=== PATIENT | female | born 1995 | race Caucasian/White ===

== ENCOUNTER 2017-02-22 13:24 | Emergency (ER) | payer SELFPAY ==
[~2017-02-22] VITALS: Ht 180.3 cm; Wt 60.9 kg
[2017-02-22 13:54] LABS: BASOPHILS # (AUTO) 0.02 x10^3/uL (0-0.1); BASOPHILS % (AUTO) 0 % (0-1); EOSINOPHILS # (AUTO) 0.08 x10^3/uL (0-0.4); EOSINOPHILS % (AUTO) 2 % (1-7); LYMPHOCYTES % (AUTO) 35 % (22-44); MD NO; MEAN CORPUSCULAR HEMOGLOBIN 30.5 pg (27.0-34.8); MEAN CORPUSCULAR HGB CONC 34.2 g/dL (32.4-35.8); MEAN CORPUSCULAR VOLUME 89.3 fL (80-100); MEAN PLATELET VOLUME 8.4 fL (7.4-10.4); MONOCYTES # (AUTO) 0.22 x10^3/uL (0.2-0.8); MONOCYTES % (AUTO) 5 % (2-9); NEUTROPHILS # (AUTO) 2.65 x10^3/uL (1.8-6.8); NEUTROPHILS % (AUTO) 58 % (42-75); PLATELET COUNT 238 x10^3/uL (130-400); RED BLOOD COUNT 4.37 x10^6/uL (3.82-5.3); RED CELL DISTRIBUTION WIDTH 13.4 % (9.6-15.2)
[2017-02-22 14:06] LABS: ALANINE AMINOTRANSFERASE 22 U/L (12-78); ALBUMIN 4.3 g/dL (3.4-5.0); ANION GAP 4 mmol/L (5-15); CALCIUM 8.5 mg/dL (8.5-10.1); CHLORIDE 107 mmol/L (98-107)
[2017-02-22 14:11] LABS: ALKALINE PHOSPHATASE 49 U/L (45-117); BILIRUBIN,TOTAL 0.5 mg/dL (0.2-1.0); TOTAL PROTEIN 7.5 g/dL (6.4-8.2)
[2017-02-22] MEDS ORDERED: SUMATRIPTAN 6MG/0.5ML SQ ONE ×2 (14:30→14:49)
[2017-02-22] MEDS ORDERED: METOCLOPRAMIDE 5 MG/ML, 2ML IVPush ONE (14:30)
[2017-02-22] MEDS ORDERED: METOCLOPRAMIDE 5 MG/ML, 2ML ONE (14:49)
[2017-02-22] MEDS ORDERED: SODIUM CHLORIDE 0.9% 1,000ML IVBOLUS ONE (15:00)
[2017-02-22 15:18] LABS: MICROSCOPIC AUTO
[2017-02-22 15:19] LABS: CULTURE INDICATED? YES
[2017-02-22 17:26] VITALS: BP 115/75
== END 2017-02-22 17:28 | disposition home or self-care (01) ==
LOC: ED 16:18
DX: G43.009 Migraine without aura, not intractable, without status migrainosus (principal); R11.2 Nausea with vomiting, unspecified; J45.909 Unspecified asthma, uncomplicated; R82.99 Other abnormal findings in urine; Z90.49 Acquired absence of other specified parts of digestive tract
CPT/HCPCS: 36415; 70450; 80053; 81001; 84703; 85025; 87077; 87086; 87186; 96372; 96374; 99285; J2765; J3030; J7030

== ENCOUNTER 2017-08-17 13:34 | Emergency (ER) | payer SELFPAY ==
[~2017-08-17] VITALS: Ht 180.3 cm; Wt 59.7 kg
[2017-08-17 13:35] VITALS: BP 119/68
[2017-08-17 15:17] LABS: HCG UR SG 1.024 (1.003-1.030); MICROSCOPIC NOT IND
[2017-08-17 15:19] LABS: CULTURE INDICATED? NO
[2017-08-17 15:42] LABS: BASOPHILS # (AUTO) 0.02 x10^3/uL (0-0.1); BASOPHILS % (AUTO) 0 % (0-1); EOSINOPHILS # (AUTO) 0.04 x10^3/uL (0-0.4); EOSINOPHILS % (AUTO) 1 % (1-7); LYMPHOCYTES # (AUTO) 1.15 x10^3/uL (1-3.4); LYMPHOCYTES % (AUTO) 17 % (22-44); MD NO; MEAN CORPUSCULAR HEMOGLOBIN 29.9 pg (27.0-34.8); MEAN CORPUSCULAR HGB CONC 33.9 g/dL (32.4-35.8); MEAN CORPUSCULAR VOLUME 88.2 fL (80-100); MEAN PLATELET VOLUME 7.9 fL (7.4-10.4); MONOCYTES # (AUTO) 0.24 x10^3/uL (0.2-0.8); MONOCYTES % (AUTO) 4 % (2-9); NEUTROPHILS # (AUTO) 5.31 x10^3/uL (1.8-6.8); NEUTROPHILS % (AUTO) 78 % (42-75); PLATELET COUNT 246 x10^3/uL (130-400); RED BLOOD COUNT 4.48 x10^6/uL (3.82-5.3); RED CELL DISTRIBUTION WIDTH 13.9 % (9.6-15.2)
[2017-08-17 15:51] LABS: ALANINE AMINOTRANSFERASE 22 U/L (12-78); ALBUMIN 4.1 g/dL (3.4-5.0); ANION GAP 7 mmol/L (5-15); CALCIUM 8.3 mg/dL (8.5-10.1); CHLORIDE 109 mmol/L (98-107)
[2017-08-17 15:55] LABS: ALKALINE PHOSPHATASE 47 U/L (45-117); BILIRUBIN,TOTAL 0.6 mg/dL (0.2-1.0); CREATININE 0.53 mg/dL (0.55-1.02)
== END 2017-08-17 17:41 | disposition home or self-care (01) ==
LOC: ED 17:35
DX: O21.9 Vomiting of pregnancy, unspecified (principal); R11.0 Nausea; R10.2 Pelvic and perineal pain; J45.909 Unspecified asthma, uncomplicated; Z3A.10 10 weeks gestation of pregnancy; Z88.5 Allergy status to narcotic agent; Z88.8 Allergy status to other drugs, medicaments and biological substances
CPT/HCPCS: 36415; 76830; 80053; 81003; 81025; 84702; 84703; 85025; 99285

== ENCOUNTER 2017-09-06 10:32 | Emergency (ER) | payer MEDICAID ==
[~2017-09-06] VITALS: Ht 180.3 cm; Wt 60.1 kg
[2017-09-06 10:44] VITALS: BP 113/74
[2017-09-06 11:13] LABS: MEAN CORPUSCULAR HEMOGLOBIN 30.4 pg (27.0-34.8); MEAN CORPUSCULAR HGB CONC 34.6 g/dL (32.4-35.8); MEAN CORPUSCULAR VOLUME 87.9 fL (80-100); MEAN PLATELET VOLUME 7.7 fL (7.4-10.4); PLATELET COUNT 209 x10^3/uL (130-400); RED BLOOD COUNT 4.51 x10^6/uL (3.82-5.3); RED CELL DISTRIBUTION WIDTH 13.8 % (9.6-15.2)
[2017-09-06 11:25] LABS: ALBUMIN 4.1 g/dL (3.4-5.0); ANION GAP 8 mmol/L (5-15); CALCIUM 8.3 mg/dL (8.5-10.1); CHLORIDE 105 mmol/L (98-107); CREATININE 0.55 mg/dL (0.55-1.02)
[2017-09-06 11:48] LABS: BASOPHILS # (AUTO) 0.01 x10^3/uL (0-0.1); BASOPHILS % (AUTO) 0 % (0-1); EOSINOPHILS % (AUTO) 0 % (1-7); LYMPHOCYTES # (AUTO) 0.45 x10^3/uL (1-3.4); LYMPHOCYTES % (AUTO) 18 % (22-44); MD SCAN; MONOCYTES # (AUTO) 0.14 x10^3/uL (0.2-0.8); MONOCYTES % (AUTO) 6 % (2-9); NEUTROPHILS # (AUTO) 1.92 x10^3/uL (1.8-6.8); NEUTROPHILS % (AUTO) 76 % (42-75)
[2017-09-06 13:17] LABS: CULTURE INDICATED? YES; MICROSCOPIC INDICATED
[2017-09-06] MEDS ORDERED: SODIUM CHLORIDE 0.9% 1,000ML IVBOLUS ONE (13:30)
[2017-09-06] MEDS ORDERED: ONDANSETRON 2MG/ML, 2ML IVPush ONE (13:30)
[2017-09-06] MEDS ORDERED: SODIUM CHLORIDE FLUSH 10ML SYR IVF ONE (13:30)
[2017-09-06] MEDS ORDERED: ONDANSETRON 2MG/ML, 2ML ONE (13:35)
== END 2017-09-06 13:59 | disposition home or self-care (01) ==
LOC: ED 12:46
DX: O20.0 Threatened abortion (principal); O21.0 Mild hyperemesis gravidarum; O26.891 Other specified pregnancy related conditions, first trimester; Z3A.01 Less than 8 weeks gestation of pregnancy; Z32.01 Encounter for pregnancy test, result positive; O21.9 Vomiting of pregnancy, unspecified; R11.0 Nausea
CPT/HCPCS: 36415; 76801; 80048; 81001; 82040; 84702; 85025; 86901; 87086; 96374; 99285; J2405; J7030

== ENCOUNTER 2017-12-06 13:27 | Emergency (ER) | payer MEDICAID ==
[~2017-12-06] VITALS: Ht 180.3 cm; Wt 70.1 kg
[2017-12-06 14:29] LABS: BASOPHILS # (AUTO) 0.02 x10^3/uL (0-0.1); BASOPHILS % (AUTO) 0 % (0-1); EOSINOPHILS # (AUTO) 0.05 x10^3/uL (0-0.4); EOSINOPHILS % (AUTO) 1 % (1-7); LYMPHOCYTES # (AUTO) 0.93 x10^3/uL (1-3.4); LYMPHOCYTES % (AUTO) 12 % (22-44); MD NO; MEAN CORPUSCULAR HEMOGLOBIN 31.3 pg (27.0-34.8); MEAN CORPUSCULAR HGB CONC 34.8 g/dL (32.4-35.8); MEAN PLATELET VOLUME 7.9 fL (7.4-10.4); MONOCYTES # (AUTO) 0.36 x10^3/uL (0.2-0.8); MONOCYTES % (AUTO) 5 % (2-9); NEUTROPHILS # (AUTO) 6.13 x10^3/uL (1.8-6.8); NEUTROPHILS % (AUTO) 82 % (42-75); PLATELET COUNT 235 x10^3/uL (130-400); RED BLOOD COUNT 4.01 x10^6/uL (3.82-5.3); RED CELL DISTRIBUTION WIDTH 14.1 % (9.6-15.2)
[2017-12-06 14:36] LABS: ALBUMIN 3.2 g/dL (3.4-5.0); ANION GAP 9 mmol/L (5-15); CHLORIDE 109 mmol/L (98-107); CREATININE 0.57 mg/dL (0.55-1.02)
[2017-12-06 15:37] VITALS: BP 103/63
== END 2017-12-06 16:36 | disposition home or self-care (01) ==
LOC: ED 16:35
DX: O20.0 Threatened abortion (principal); Z90.49 Acquired absence of other specified parts of digestive tract
CPT/HCPCS: 36415; 76805; 80048; 82040; 85025; 86901; 99285

== ENCOUNTER 2019-04-08 14:13 | Emergency (ER) | payer MEDICAID ==
[~2019-04-08] VITALS: Ht 180.3 cm; Wt 76.8 kg
[2019-04-08 14:24] VITALS: BP 115/70
== END 2019-04-08 15:20 | disposition home or self-care (01) ==
LOC: ED 15:00
DX: N61.1 Abscess of the breast and nipple (principal); J45.909 Unspecified asthma, uncomplicated
CPT/HCPCS: 99283

== ENCOUNTER 2019-07-22 18:10 | Emergency (ER) | payer MEDICAID ==
[~2019-07-22] VITALS: Ht 180.3 cm; Wt 77.0 kg
[2019-07-22 19:11] LABS: HCG UR SG 1.026 (1.003-1.030); MICROSCOPIC AUTO
--- NOTE | 2019-07-22 20:10 | NUR ---
PT TO ROOM FROM LOBBY
[2019-07-22 20:12] VITALS: BP 103/46
--- NOTE | 2019-07-22 20:13 | NUR ---
LAB AT BEDSIDE
--- NOTE | 2019-07-22 20:14 | NUR ---
THIS IS A 24Y F THAT COMES IN TONIGHT FOLLOWING A POSITIVE PREG TEST YESTERDAY. PT STS SHE HAS BEEN FEELING VERY SICK TO HER STOMACH AND LIGHT HEADED [id number]. PT STS THIS HAPPENED LAST TIME SHE WAS . SHE IS STILL HER OTHER CHILD AND STS SHE HAS BEEN FEELING EXHAUSTED. PT CONNECTED TO MONITORING JEREMIAHSLIZ
[2019-07-22 20:34] LABS: ALANINE AMINOTRANSFERASE 19 U/L (12-78); ALBUMIN 3.9 g/dL (3.4-5.0); ANION GAP 7 mmol/L (5-15); CALCIUM 8.6 mg/dL (8.5-10.1); CHLORIDE 110 mmol/L (98-107); CREATININE 0.57 mg/dL (0.55-1.02)
[2019-07-22 20:45] LABS: BASOPHILS # (AUTO) 0.01 x10^3/uL (0-0.1); BASOPHILS % (AUTO) 0 % (0-1); EOSINOPHILS # (AUTO) 0.09 x10^3/uL (0-0.4); EOSINOPHILS % (AUTO) 2 % (1-7); LYMPHOCYTES # (AUTO) 1.29 x10^3/uL (1-3.4); LYMPHOCYTES % (AUTO) 23 % (22-44); MD NO; MEAN CORPUSCULAR HGB CONC 32.9 g/dL (32.4-35.8); MEAN CORPUSCULAR VOLUME 88.1 fL (80-100); MEAN PLATELET VOLUME 9.3 fL (7.4-10.4); MONOCYTES % (AUTO) 5 % (2-9); NEUTROPHILS % (AUTO) 70 % (42-75); PLATELET COUNT 245 x10^3/uL (130-400); RED BLOOD COUNT 4.32 x10^6/uL (3.82-5.3); RED CELL DISTRIBUTION WIDTH 13.3 % (9.6-15.2)
[2019-07-22 20:54] LABS: ALKALINE PHOSPHATASE 83 U/L (45-117); BILIRUBIN,TOTAL 0.4 mg/dL (0.2-1.0); TOTAL PROTEIN 7.1 g/dL (6.4-8.2)
== END 2019-07-22 21:46 | disposition home or self-care (01) ==
LOC: ED 21:00
DX: O23.11 Infections of bladder in pregnancy, first trimester (principal); O21.9 Vomiting of pregnancy, unspecified; G43.909 Migraine, unspecified, not intractable, without status migrainosus; Z3A.01 Less than 8 weeks gestation of pregnancy
CPT/HCPCS: 36415; 76801; 80053; 81001; 81025; 84702; 85025; 86901; 87086; 99284

== ENCOUNTER 2020-10-06 12:12 | Emergency (ER) | payer MEDICAID ==
[2020-10-06 12:29] VITALS: BP 102/80
--- NOTE | 2020-10-06 12:40 | NUR ---
sap basis administrator note: Pt to room from lobby.
--- NOTE | 2020-10-06 12:42 | NUR ---
RANDOLPH RN: THIS IS A 25 YEAR OLD FEMALE WHO C/O ABD PAIN; +IUD, POSITIVE TEST YESTERDAY; +SPOTTING
[2020-10-06] MEDS ORDERED: PLEASE ENTER WEIGHT MC SCH (13:00)
[2020-10-06] MEDS ORDERED: SODIUM CHLORIDE 0.9% 1,000ML IVBOLUS ONE (13:00)
[2020-10-06] MEDS ORDERED: ONDANSETRON 2MG/ML, 2ML IVPush ONE (13:00)
[2020-10-06 13:05] LABS: BASOPHILS % (AUTO) 0 % (0-1); EOSINOPHILS % (AUTO) 1 % (1-7); LYMPHOCYTES % (AUTO) 21 % (22-44); MEAN CORPUSCULAR HEMOGLOBIN 29.8 pg (27.0-34.8); MEAN PLATELET VOLUME 7.6 fL (7.4-10.4); MONOCYTES % (AUTO) 7 % (2-9); NEUTROPHILS % (AUTO) 71 % (42-75); PLATELET COUNT 272 x10^3/uL (130-400); RED BLOOD COUNT 5.04 x10^6/uL (3.82-5.3); RED CELL DISTRIBUTION WIDTH 13.8 % (9.6-15.2)
[2020-10-06] MEDS ORDERED: ONDANSETRON 2MG/ML, 2ML ONE (13:17)
[2020-10-06 13:20] LABS: ALANINE AMINOTRANSFERASE 22 U/L (12-78); ALBUMIN 4.5 g/dL (3.4-5.0); ANION GAP 9 mmol/L (5-15); CALCIUM 9.5 mg/dL (8.5-10.1); CHLORIDE 109 mmol/L (98-107); CREATININE 0.73 mg/dL (0.55-1.02)
[2020-10-06 13:24] LABS: ALKALINE PHOSPHATASE 96 U/L (45-117); BILIRUBIN,TOTAL 2.2 mg/dL (0.2-1.0); TOTAL PROTEIN 8.2 g/dL (6.4-8.2)
[2020-10-06] MEDS ORDERED: ONDANSETRON ODT 4 MG ONE (13:45)
[2020-10-06] MEDS ORDERED: ONDANSETRON ODT 4 MG PO ONE (14:00)
--- NOTE | 2020-10-06 14:04 | NUR ---
DECLINED PAIN MEDS
[2020-10-06 14:32] LABS: MICROSCOPIC AUTO
== END 2020-10-06 16:05 | disposition home or self-care (01) ==
LOC: ED 16:00
DX: N30.00 Acute cystitis without hematuria (principal); R11.2 Nausea with vomiting, unspecified; G43.909 Migraine, unspecified, not intractable, without status migrainosus; J45.909 Unspecified asthma, uncomplicated
CPT/HCPCS: 36415; 80053; 81001; 84703; 85025; 87077; 87086; 96360; 96361; 99283; J7030; Q0162

== ENCOUNTER 2020-10-17 11:08 | Emergency (ER) | payer MEDICAID ==
[~2020-10-17] VITALS: Ht 180.3 cm; Wt 70.5 kg
[2020-10-17 11:53] LABS: BASOPHILS % (AUTO) 0 % (0-1); EOSINOPHILS % (AUTO) 2 % (1-7); LYMPHOCYTES % (AUTO) 23 % (22-44); MEAN CORPUSCULAR HEMOGLOBIN 29.8 pg (27.0-34.8); MEAN CORPUSCULAR HGB CONC 33.6 g/dL (32.4-35.8); MEAN PLATELET VOLUME 8.2 fL (7.4-10.4); MONOCYTES % (AUTO) 6 % (2-9); NEUTROPHILS % (AUTO) 69 % (42-75); PLATELET COUNT 257 x10^3/uL (130-400); RED BLOOD COUNT 4.63 x10^6/uL (3.82-5.3)
[2020-10-17 12:05] LABS: ALANINE AMINOTRANSFERASE 25 U/L (12-78); ALBUMIN 3.6 g/dL (3.4-5.0); ANION GAP 6 mmol/L (5-15); CALCIUM 8.8 mg/dL (8.5-10.1); CHLORIDE 112 mmol/L (98-107); CREATININE 0.52 mg/dL (0.55-1.02)
[2020-10-17 12:11] LABS: ALKALINE PHOSPHATASE 71 U/L (45-117); BILIRUBIN,TOTAL 0.4 mg/dL (0.2-1.0)
[2020-10-17] MEDS ORDERED: KETOROLAC 30 MG/1 ML ONE (12:50)
[2020-10-17] MEDS ORDERED: CYCLOBENZAPRINE 10 MG TABLET ONE ×2 (12:50→12:55)
[2020-10-17 12:54] LABS: MICROSCOPIC AUTO
[2020-10-17] MEDS ORDERED: KETOROLAC 30 MG/1 ML IM ONE (13:00)
[2020-10-17] MEDS ORDERED: CYCLOBENZAPRINE 10 MG TABLET PO ONE (13:00)
[2020-10-17 13:02] VITALS: BP 118/46
--- NOTE | 2020-10-17 13:02 | NUR ---
PT C/O SEVERE PAIN TO R LOWER BACK. MEDICATED PER ORDERS. PILLOW & HOT PACK PROVIDED FOR COMFORT.
--- NOTE | 2020-10-17 13:31 | NUR ---
PT STATES SHE'S FEELING A LITTLE BETTER AFTER MEDS; STATES SHE WANTS TO GO HOME. D/C INSTRUCTIONS, MEDS & F/U APPT RV'WD WITH PT, SHE VERBALIZES UNDERSTANDING. RX GIVEN X3. PT ASSISTED OUT OF ED VIA WC WITH SIGNIFICANT OTHER.
== END 2020-10-17 13:32 | disposition home or self-care (01) ==
LOC: ED 13:25
DX: S39.012A Strain of muscle, fascia and tendon of lower back, initial encounter (principal); J45.909 Unspecified asthma, uncomplicated; G43.909 Migraine, unspecified, not intractable, without status migrainosus; X58.XXXA Exposure to other specified factors, initial encounter; Y93.89 Activity, other specified; Y92.89 Other specified places as the place of occurrence of the external cause; Y99.8 Other external cause status
CPT/HCPCS: 36415; 80053; 81001; 84703; 85025; 87086; 96372; 99283; J1885